=== PATIENT | female | born 1980 | race Two or more races ===

== ENCOUNTER 2017-06-10 11:02 | Outpatient (CLI) | payer MEDICAID ==
[2017-06-10 11:52] LABS: APPEARANCE,URINE SLIGHTLY-CLOUDY; BILIRUBIN,URINE NEGATIVE (NEGATIVE); COLOR,URINE YELLOW; GLUCOSE, URINE NEGATIVE (NEGATIVE); KETONES,URINE NEGATIVE (NEGATIVE); LEUKOCYTE ESTERASE,URINE SMALL (NEGATIVE); NITRITE,URINE NEGATIVE (NEGATIVE); PROTEIN,URINE NEGATIVE (NEGATIVE); URINE SPECIFIC GRAVITY 1.008; UROBILINOGEN,URINE NEGATIVE mg/dL (<2.0)
[2017-06-10 12:09] LABS: URINE AMPHETAMINES SCREEN NEGATIVE; URINE BARBITURATES SCREEN NEGATIVE; URINE BENZODIAZEPINES SCREEN NEGATIVE; URINE COCAINE SCREEN NEGATIVE; URINE MARIJUANA (THC) SCREEN NEGATIVE; URINE METHADONE SCREEN NEGATIVE; URINE PHENCYCLIDINE SCREEN NEGATIVE
--- NOTE | 2017-06-10 13:37 | Non Stress Test Report ---
Non Stress Test Datetime Report Generated by CPN: 06/10/2017 13:37 DEMOGRAPHIC EGA NST: 39.0 INDICATION Indication for Study: Ordered by Provider VITAL SIGNS Temperature - NST: 98.1 Pulse - NST: 100 RESP - NST: 15 NBPSYS NST: 94 NBPDIA NST: 60 MONITORING Monitor Explained: Monitor Explained; Test Explained; Patient Verbalized Understanding Time on Monitor: 06/10/2017 11:30 Time off Monitor: 06/10/2017 12:03 NST Duration: 33 NST INTERVENTIONS NST Interventions: PO Hydration Physician Notified NST: H Mike CNM BABY A: [id number] BABY A Movement : Present Contraction Frequency : occas FHR Baseline : 135 Accelerations : 15X15 Decelerations : None Variability : Moderate 6-25bpm NST Review: Meets Criteria for Reactive NST NST Review and Verified By : Kade Langley RNC NST Results: Reactive NST REPORT Report Trigger: Send Report
== END 2017-06-10 13:31 | disposition home or self-care (01) ==
LOC: LC 11:02
PROVIDERS: ATTEND Obstetrics & Gynecology
PROC: 4A1HXCZ Monitoring of Products of Conception, Cardiac Rate, External Approach (ICD-10-PCS; principal; 2017-06-10)
DX: O47.1 False labor at or after 37 completed weeks of gestation (principal); O09.523 Supervision of elderly multigravida, third trimester; Z3A.39 39 weeks gestation of pregnancy
CPT/HCPCS: 59025; 80307; 81005

== ENCOUNTER 2017-06-10 18:10 | Inpatient (IN) | payer MEDICAID ==
[2017-06-10] MEDS ORDERED: RINGERS SOLUTION,LACTATED 1,000 ML IV ONE (18:32)
[2017-06-10] MEDS ORDERED: RINGERS SOLUTION,LACTATED 1,000 ML IV PRN (18:32)
[2017-06-10] MEDS ORDERED: MISOPROSTOL 0.2 MG TABLET ONE (18:48)
[2017-06-10] MEDS ORDERED: LIDOCAINE 1% INJ-PF (10 MG/ML) 30 ML SDV ONE (18:49)
[2017-06-10] MEDS ORDERED: OXYTOCIN/NORMAL SALINE 20 UNIT/1,000 ML RTUINJ ONE (18:49)
[2017-06-10 19:21] LABS: ABSOLUTE EOSINOPHILS # (AUTO) 0.1 10^3/uL (0.0-0.6); ABSOLUTE LYMPHOCYTES (AUTO) 1.9 10^3/uL (0.5-4.7); ABSOLUTE MONOCYTES (AUTO) 0.8 10^3/uL (0.1-1.4); ABSOLUTE NEUT (AUTO) 8.2 10^3/uL (1.7-8.2); BASOPHILS % (AUTO) 0.3 % (0-2); EOSINOPHILS % (AUTO) 0.7 % (0-6); HEMATOCRIT 36.8 % (36.0-47.0); HEMOGLOBIN 12.9 g/dL (12.0-15.5); LYMPHOCYTES % (AUTO) 17.2 % (13-45); MEAN CORPUSCULAR HEMOGLOBIN 33.7 pg (27.0-33.4); MEAN CORPUSCULAR HGB CONC 35.1 g/dL (32.0-36.0); MEAN CORPUSCULAR VOLUME 96 fl (80-97); PLATELET COUNT 181 10^3/uL (150-450); RED BLOOD COUNT 3.83 10^6/uL (3.72-5.28); RED CELL DISTRIBUTION WIDTH 14.6 % (11.5-14.0); SEGMENTED NEUTROPHILS % (AUTO) 74.8 % (42-78); TOTAL CELLS COUNTED % (AUTO) 100 %
[2017-06-10 19:49] LABS: APPEARANCE,URINE TURBID; BILIRUBIN,URINE NEGATIVE (NEGATIVE); COLOR,URINE YELLOW; GLUCOSE, URINE NEGATIVE (NEGATIVE); KETONES,URINE NEGATIVE (NEGATIVE); LEUKOCYTE ESTERASE,URINE NEGATIVE (NEGATIVE); NITRITE,URINE NEGATIVE (NEGATIVE); PROTEIN,URINE NEGATIVE (NEGATIVE); URINE SPECIFIC GRAVITY 1.023; UROBILINOGEN,URINE NEGATIVE mg/dL (<2.0)
[2017-06-10 21:04] LABS: URINE AMPHETAMINES SCREEN NEGATIVE; URINE BARBITURATES SCREEN NEGATIVE; URINE BENZODIAZEPINES SCREEN NEGATIVE; URINE COCAINE SCREEN NEGATIVE; URINE MARIJUANA (THC) SCREEN NEGATIVE; URINE METHADONE SCREEN NEGATIVE; URINE PHENCYCLIDINE SCREEN NEGATIVE
[2017-06-10] MEDS ORDERED: BENZOCAINE/MENTHOL AEROSOL SPRAY 56 ML TOP PRN (21:45)
[2017-06-10] MEDS ORDERED: MAGNESIUM HYDROXIDE SUSP 30 ML UDCUP PO PRN (21:45)
[2017-06-10] MEDS ORDERED: ACETAMINOPHEN 650 MG SUPP.RECT PR PRN (21:45)
[2017-06-10] MEDS ORDERED: ZOLPIDEM TARTRATE 5 MG TABLET PO PRN (21:45)
[2017-06-10] MEDS ORDERED: OXYTOCIN/NORMAL SALINE 20 UNIT/1,000 ML RTUINJ IV PRN (21:45)
[2017-06-10] MEDS ORDERED: PROMETHAZINE HCL 25 MG TABLET PO PRN (21:45)
[2017-06-10] MEDS ORDERED: DIPH/PERTUSS(ACELL)/TETANUS VAC/PF 0.5 ML SYR (>=10YO) IM PRN (21:45)
[2017-06-10] MEDS ORDERED: PROMETHAZINE HCL 25 MG SUPP.RECT PR PRN (21:45)
[2017-06-10] MEDS ORDERED: NA PHOS,M-B/NA PHOS,DI-BA (ADULT) 133 ML ENEMA PR PRN (21:45)
[2017-06-10] MEDS ORDERED: PROMETHAZINE HCL INJ 25 MG/1 ML VIAL IV PRN (21:45)
[2017-06-10] MEDS ORDERED: DIPHENHYDRAMINE HCL 25 MG CAPSULE PO PRN (21:45)
[2017-06-10] MEDS ORDERED: PSEUDOEPHEDRINE HCL 30 MG TABLET PO PRN (21:45)
[2017-06-10] MEDS ORDERED: DIBUCAINE 1% OINTMENT 28 GM TP PRN (21:45)
[2017-06-10] MEDS ORDERED: GLYCERIN/WITCH HAZEL LEAF 1 EACH MED..PAD TP PRN (21:45)
[2017-06-10] MEDS ORDERED: ACETAMINOPHEN WITH CODEINE #3 TABLET PO PRN ×2 (21:45)
[2017-06-10] MEDS ORDERED: MEASLES,MUMPS&RUBELLA VACC/PF 0.5 ML VIAL SUBCUT PRN (21:45)
--- NOTE | 2017-06-10 23:44 | Warning Signs in Babies ---
VOD Warning Signs Datetime Report Generated by [facility]: 06/10/2017 23:44 VOD#608 -Warning Signs in Babies: Needs to be viewed. (06/10/2017 11:29:Sayda Monge RN)
[2017-06-11] MEDS ORDERED: IBUPROFEN 800 MG TABLET ONE
--- NOTE | 2017-06-11 00:48 | Admission Physical ---
Datetime Report Generated by CPN: 06/11/2017 00:48 CURRENT ADMISSION Chief Complaint: Uterine Contractions Indication for Induction: Not Applicable Indication for Induction: Active Labor Admit Plan: Admit to Unit; Initiate Labor Protocol ALLERGIES Medication Allergies: No Medication Allergies: No Known Allergies (12/30/2013) Latex: No Latex Allergies OBSTETRICAL HISTORY EDC: 06/17/2017 00:00 : 3 Para: 1 Term: 1 : 0 SAB: 1 IAB: 0 Livin Gestational Diabetes: No Rh Sensitization: No Incompetent Cervix: No FILEMON: No Infertility: No ART Treatment: No Uterine Anomaly: No IUGR: No Hx Previous C/S: No Macrosomia: No Hx Loss/Stillborn: No PIH: No Hx : No Placenta Previa/Abruption: No Depression/PP Depression: No PTL/PROM: No Post Hemorrhage: No Current Procedures: Ultrasound Obstetrical History Comments: 2013 SAB 6 weeks 2015 baby girl 40 weeks 2017 current pregnacy SEE RECORDS Alcohol: No Marijuana : No Cocaine: No Other Illicit Drugs: No Cigarettes: Former Smoker. [id number] MEDICAL HISTORY Diabetes: No Blood Transfusion: No Pulmonary Disease (Asthma, TB): No Breast Disease: No Hypertension: No Customs Broker Surgery: No Heart Disease: No Hosp/Surgery: Yes Autoimmune Disorder: No Anesthetic Complications: No Kidney Disease: No Abnormal Pap Smear: No Neuro/Epilepsy: No Psychiatric Disorders: No Other Medical Diseases: No Hepatitis/Liver Disease: No Significant Family History: No Varicosities/Phlebitis: No Trauma/Violence : No Thyroid Dysfunction: No Medical History Comments: at 12 y.o cosmetic syrgery for nose 16 y.o tonsils taken out 12 y.o. plastic surgery (nose) INFECTIOUS HISTORY Gonorrhea: No Genital Herpes: No Chlamydia: No Tuberculosis: No Syphilis: No Hepatitis: No HIV/AIDS Exposure: No Rash or Viral Illness: No HPV: No PHYSICAL EXAM General: Normal HEENT: Normal Neurologic: Normal Thyroid: Normal Heart: Normal Lungs: Normal Breast: Deferred Back: Normal Abdomen: Normal Genitourinary Exam: Normal Extremities: Normal DTRs: Normal Pelvic Type: Adequate VAGINAL EXAM Dilatation: 7 Effacement: 75 Station: -2 MEMBRANES Pooling: Negative Membranes: Intact FETUS A EGA: 39.0 Monitoring: External US FHR- Baseline: 140 Variability: Moderate 6-25bpm Decelerations: None FHR Category: Category I PLANS FOR LABOR AND DELIVERY Labor and Delivery: None Pain Management: Natural Feeding Preference: Breast Benefit of Breast Feed Discussed: Yes Circumcision: N/A INFORMED CONSENT Signature: with User ID: [email or web address]
[2017-06-11] MEDS: FAMOTIDINE 20 MG TABLET PO SCH ×3 (03:48→22:01)
[2017-06-11] MEDS: IBUPROFEN 800 MG TABLET PO SCH ×4 (06:21→22:02)
[2017-06-11 07:19] LABS: HEMATOCRIT 38.2 % (36.0-47.0); HEMOGLOBIN 12.9 g/dL (12.0-15.5); MEAN CORPUSCULAR HEMOGLOBIN 32.8 pg (27.0-33.4); MEAN CORPUSCULAR HGB CONC 33.9 g/dL (32.0-36.0); MEAN CORPUSCULAR VOLUME 97 fl (80-97); PLATELET COUNT 188 10^3/uL (150-450); RED BLOOD COUNT 3.94 10^6/uL (3.72-5.28); RED CELL DISTRIBUTION WIDTH 15.4 % (11.5-14.0); WHITE BLOOD COUNT 12.5 10^3/uL (4.0-10.5)
--- NOTE | 2017-06-11 09:12 | PDOC PROGRESS REPORT ---
Subjective-OB Subjective: Post Delivery Day: 1 35 year old. Denies any needs at this time, voiding without difficulty, state lochia is stable, pain well controlled, bonding with baby well. Physical Exam (OB) Vital Signs: Temp Pulse Resp BP Pulse Ox 97.6 F 73 15 111/70 100 06/11/17 07:36 06/11/17 07:36 06/11/17 07:36 06/11/17 07:36 06/11/17 07:36 Intake & Output 06/10/17 06/11/17 06/12/17 06:59 06:59 06:59 Weight 109.6 kg - Lochia Lochia Amount: Small 10-25 ml Lochia Color: Rubra/Red - Abdomen Description: Soft, Round Hernia Present: No Fundal Description: Firm, Midline Fundal Height: u/u - u/2 Objective-Diagnostic Laboratory: 06/11/17 06:52 06/10/17 06/10/17 06/10/17 18:21 18:50 18:50 WBC 11.0 H RBC 3.83 Hgb 12.9 Hct 36.8 MCV 96 MCH 33.7 H MCHC 35.1 RDW 14.6 H Plt Count 181 Seg Neutrophils % 74.8 Lymphocytes % 17.2 Monocytes % 7.0 Eosinophils % 0.7 Basophils % 0.3 Absolute Neutrophils 8.2 Absolute Lymphocytes 1.9 Absolute Monocytes 0.8 Absolute Eosinophils 0.1 Absolute Basophils 0.0 Urine Color YELLOW Urine Appearance TURBID Urine pH 7.0 Ur Specific [place] 1.023 Urine Protein NEGATIVE Urine Glucose (UA) NEGATIVE Urine Ketones NEGATIVE Urine Blood NEGATIVE Urine Nitrite NEGATIVE Ur Leukocyte Esterase NEGATIVE Blood Type A POSITIVE Antibody Screen NEGATIVE 06/11/17 06:52 WBC 12.5 H RBC 3.94 Hgb 12.9 Hct 38.2 MCV 97 MCH 32.8 MCHC 33.9 RDW 15.4 H Plt Count 188 Seg Neutrophils % Lymphocytes % Monocytes % Eosinophils % Basophils % Absolute Neutrophils Absolute Lymphocytes Absolute Monocytes Absolute Eosinophils Absolute Basophils Urine Color Urine Appearance Urine pH Ur Specific [place] Urine Protein Urine Glucose (UA) Urine Ketones Urine Blood Urine Nitrite Ur Leukocyte Esterase Blood Type Antibody Screen Assessment and Plan(PN) - Assessment and Plan (1) Vaginal delivery Is this a current diagnosis for this admission?: Yes Plan: routine pp care - Time Spent with Patient Time with patient: Less than 15 minutes Critical Time spent with patient: Less than 15 minutes Medications reviewed and adjusted accordingly: Yes - Disposition Anticipated Discharge: Home Within: within 24 hours
[2017-06-11] MEDS: SENNOSIDES/DOCUSATE 8.6-50 MG 1 EACH TABLET PO SCH (09:39)
[2017-06-11] MEDS: PRENATAL VITAMIN W DHA CAPSULE PO SCH (09:39)
[2017-06-11] MEDS: FERROUS SULFATE 325 MG TABLET PO SCH ×2 (09:40→17:15)
[2017-06-11] MEDS: DOCUSATE SODIUM 100 MG CAPSULE PO SCH ×2 (09:40→17:15)
[2017-06-12] MEDS: IBUPROFEN 800 MG TABLET PO SCH ×2 (06:10→13:24)
--- NOTE | 2017-06-12 08:41 | PDOC DISCHARGE SUMMARY ---
Final Diagnosis Discharge Date: 06/12/17 - Final Diagnosis (1) Vaginal delivery Is this a current diagnosis for this admission?: Yes Discharge Data - Discharge Medication Prescriptions: Docusate Sodium [Colace 100 mg Capsule] 100 mg PO BID #60 capsule Ibuprofen [Motrin 800 mg Tablet] 800 mg PO Q8 #60 tablet Home Medications: Vits96/Iron Fum/Folic [ Tablet] 1 tab PO DAILY 12/30/13 Docusate Sodium [Colace 100 mg Capsule] 100 mg PO BID #60 capsule 06/12/17 Ibuprofen [Motrin 800 mg Tablet] 800 mg PO Q8 #60 tablet 06/12/17 Gestational Age: 39 Reason(s) for Admission: Onset of Labor Procedures: NST Intrapartum Procedure(s): Spontaneous Vaginal Delivery Complication(s): Laceration-Vaginal Laceration-Degree: 1st - Data Baby 1 Female Home with Mother: Yes Complications: No - Diagnosis Test Laboratory: Temp Pulse Resp BP Pulse Ox 98.2 F 82 18 114/77 99 06/12/17 08:02 06/12/17 08:02 06/12/17 08:02 06/11/17 19:43 06/12/17 08:02 06/10/17 06/10/17 06/11/17 18:21 18:50 06:52 RBC 3.83 3.94 Hgb 12.9 12.9 Hct 36.8 38.2 Urine Opiates Screen NEGATIVE - Discharge information/Instructions Discharge Activity: Activity As Tolerated, Pelvic Rest, No tub bath Discharge Diet: Regular Disposition: HOME, SELF-CARE Follow up with: [facility] in: 4, Weeks
[2017-06-12] MEDS: FAMOTIDINE 20 MG TABLET PO SCH (10:57)
[2017-06-12] MEDS: DOCUSATE SODIUM 100 MG CAPSULE PO SCH (10:57)
[2017-06-12] MEDS: FERROUS SULFATE 325 MG TABLET PO SCH (10:57)
[2017-06-12] MEDS: SENNOSIDES/DOCUSATE 8.6-50 MG 1 EACH TABLET PO SCH (10:57)
[2017-06-12] MEDS: PRENATAL VITAMIN W DHA CAPSULE PO SCH (10:57)
[2017-06-12 12:14] VITALS: BP 100/70
--- NOTE | 2017-06-14 14:39 | Delivery Summary ---
Del Sum A-C Datetime Report Generated by CPN: 06/14/2017 14:39 DELIVERY PERSONNEL DELIVERY PERSONNEL: [id number] Delivery Doctor:: Clary Hardwick MD Labor and Delivery Nurse:: Sayda Monge RNfiscal officer Nurse:: Anel Barker RN Box Office Manager/MATERIALS INSPECTOR: Isela Dinh, ST MATERNAL INFORMATION Delivery Anesthesia: None Medications After Delivery: Pitocin Drip 20 Units/1000ml NSS Estimated Blood Loss (ml): 250 Maternal Complications: None LABOR SUMMARY EDC: 06/17/2017 00:00 No. Babies in Womb: 1 Attempted: No Labor Anesthesia: None LABOR INFORMATION Reason for Induction: Not Applicable Onset of Labor: 06/10/2017 20:13 Complete Dilatation: 06/10/2017 21:34 Oxytocin: N/A Group B Beta Strep: negative Antibiotics # of Doses: N/A Antibiotics Time of Last Dose: N/A Name of Antibiotic Given: N/A Steroids Given: None Reason Steroids Not Administered: Not Applicable MEMBRANES Membranes Rupture Method: Artificial Rupture of Membranes: 06/10/2017 21:14 Length of Rupture (hr): 1.40 Amniotic Fluid Color: Clear Amniotic Fluid Amount: Moderate Amniotic Fluid Odor: Normal STAGES OF LABOR Stage 1 hr: 1 Stage 1 min: 21 Stage 2 hr: 1 Stage 2 min: 4 Stage 3 hr: 0 Stage 3 min: 5 Total Time in Labor hr: 2 Total Time in Labor min: 30 VAGINAL DELIVERY Episiotomy: None Laceration #1: Vaginal Laceration Extension #1: First Degree Laceration Repair: Yes Laceration Repair Note: repaired with one 3-0 chromic suture Sponge Count Correct: Vaginal Sweep Performed Sharps Count Correct: Yes CSECTION DELIVERY Primary Indication: N/A Secondary Indication: N/A CSection Incidence: N/A Labor: N/A Elective: N/A BABY A INFORMATION Delivery Date/Time: 06/10/2017 22:38 Method of Delivery: Vaginal Method of Delivery: Vaginal Born in Route : No : N/A Forceps: N/A Vacuum Extraction: N/A Shoulder Dystocia : No PRESENTATION/POSITION BABY A Presentation: Cephalic Presentation: Cephalic Cephalic Presentation: Vertex Cephalic Presentation: Vertex Vertex Position: Left Occipital Anterior Breech Presentation: N/A PLACENTA INFORMATION BABY A Placenta Delivery Time : 06/10/2017 22:43 Placenta Method of Delivery: Spontaneous Placenta Method of Delivery: Spontaneous Placenta Status: Delivered Placenta Status: Delivered SCORES BABY A Heart Rate 1 min: >100 bpm Resp Effort 1 min: Good Cry Reflex Irritability 1 min: Cough or Sneeze or Pulls Away Muscle Tone 1 min: Active Motion Color 1 min: Body [place], Extremities Blue Resuscitation Effort 1 min: Tactile Stimulation SCORE 1 MIN: 9 Heart Rate 5 min: >100 bpm Resp Effort 5 min: Good Cry Reflex Irritability 5 min: Cough or Sneeze or Pulls Away Muscle Tone 5 min: Active Motion Color 5 min: Body [place], Extremities Blue Resuscitation Effort 5 min: Tactile Stimulation SCORE 5 MIN: 9 INFORMATION BABY A Gestational Age at Delivery: 39.0 Gestational Status: Full Term- 39- 40.6 Weeks Outcome : Liveborn Infant Condition : Stable Sex: Female Infant Sex: Female IDENTIFICATION BABY A Verification Date/Time: 06/10/2017 22:52 ID Band Number: [id number] Mother's Name Verified: Yes Infant RN Verifying : CFelicitas Ruiz, RN Additional Verifying Personnel: D Sproues MATERIALS INSPECTOR WEIGHT/LENGTH BABY A Birthweight (gm): 3940 Infant Weight (lb): 8 Weight (oz): 11 Length (in): 20.50 Length (cm): 52.07 CORD INFORMATION BABY A No. Cord Vessels: 3 Nuchal Cord : N/A Cord Blood Taken: Yes-For Storage (Mom's Blood type +) Infant Suction: Mouth; Nose ASSESSMENT BABY A Infant Complications: None Physical Findings at Delivery: Within Normal Limits Infant Respirations: Appears Normal Skin to Skin: Yes Skin to Skin: Yes Skin to Skin: Yes Skin to Skin: Yes Skin to Skin: Yes Skin to Skin: Yes Skin to Skin: Yes Skin to Skin Time (min): 60 Skin to Skin Time (min): 60 Parimutuel Ticket Checker/ALS Called : No Infant Care By: Corinne Farrell RN Transferred To: Remains with Mother SIGNATURES Signature: with User ID: [email or web address]
== END 2017-06-12 15:06 | disposition home or self-care (01) | DRG 775 ==
LOC: LC 18:10 → LR 18:35 → 2S 06-11 00:36
PROVIDERS: ADMIT Obstetrics & Gynecology; ATTEND Obstetrics & Gynecology
PROC: 10E0XZZ Delivery of Products of Conception, External Approach (ICD-10-PCS; principal; 2017-06-10)
PROC: 0HQ9XZZ Repair Perineum Skin, External Approach (ICD-10-PCS; 2017-06-10)
DX: O99.214 Obesity complicating childbirth (principal); O70.0 First degree perineal laceration during delivery; E66.9 Obesity, unspecified; Z68.33 Body mass index [BMI] 33.0-33.9, adult; Z3A.39 39 weeks gestation of pregnancy; Z37.0 Single live birth
CPT/HCPCS: 36415; 59025; 80307; 81005; 85025; 85027; 86592; 86850; 86900; 86901; J2590; J3490

== ENCOUNTER 2019-04-28 13:56 | Inpatient (IN) | payer MEDICAID ==
[2019-04-28 14:36] LABS: EPITHELIALS (WET MOUNT) 3+ EPITHELIALS SEEN; T.VAGINALIS (WET MOUNT) NO TRICHOMONAS SEEN; WBCS (WET MOUNT) FEW WBCS SEEN; YEAST (WET MOUNT) NO YEAST SEEN
[2019-04-28 14:41] LABS: AMORPHOUS SEDIMENT,URINE TRACE /HPF; APPEARANCE,URINE CLOUDY; BILIRUBIN,URINE NEGATIVE (NEGATIVE); COLOR,URINE YELLOW; GLUCOSE, URINE NEGATIVE (NEGATIVE); KETONES,URINE NEGATIVE (NEGATIVE); LEUKOCYTE ESTERASE,URINE NEGATIVE (NEGATIVE); NITRITE,URINE NEGATIVE (NEGATIVE); PROTEIN,URINE 30 mg/dL (NEGATIVE); URINE SPECIFIC GRAVITY 1.026; UROBILINOGEN,URINE NEGATIVE mg/dL (<2.0)
[2019-04-28 14:59] LABS: URINE AMPHETAMINES SCREEN NEGATIVE; URINE BARBITURATES SCREEN NEGATIVE; URINE BENZODIAZEPINES SCREEN NEGATIVE; URINE COCAINE SCREEN NEGATIVE; URINE MARIJUANA (THC) SCREEN NEGATIVE; URINE METHADONE SCREEN NEGATIVE; URINE PHENCYCLIDINE SCREEN NEGATIVE
--- NOTE | 2019-04-28 15:23 | Non Stress Test Report ---
Non Stress Test Datetime Report Generated by CPN: 04/28/2019 15:22 DEMOGRAPHIC EGA NST: 35.1 VITAL SIGNS Temperature - NST: 98.0 RESP - NST: 16 MONITORING Monitor Explained: Monitor Explained; Test Explained; Patient Verbalized Understanding Time on Monitor: 04/28/2019 14:25 Time off Monitor: 04/28/2019 15:04 NST Duration: 39 NST INTERVENTIONS NST Interventions: PO Hydration; Reposition Patient Physician Notified NST: Dr. Corral BABY A: [id number] BABY A Movement : Present Contraction Frequency : irregular FHR Baseline : 135 Accelerations : 15X15 Decelerations : Variable Variability : Moderate 6-25bpm NST Review: Does Not Meet Criteria for Reactive NST (Annotations: Data stored by N on behalf of user) NST Review and Verified By : Rocco Nevarez RN NST Results: Reactive NST REPORT Report Trigger: Send Report (Annotations: Data stored by TACO on behalf of user)
[2019-04-28 16:01] LABS: CHLAM PCR NOT DETECTED (NOT DETECT)
[2019-04-28] MEDS ORDERED: BETAMET ACET/BETAMET NA INJ 6 MG/1 ML ONE (16:24)
[2019-04-28] MEDS ORDERED: PENICILLIN G-K 5 MILLION UNIT VIAL ONE ×2 (16:25→21:41)
[2019-04-28 16:51] LABS: ABSOLUTE BASOPHILS # (AUTO) 0.1 10^3/uL (0.0-0.2); ABSOLUTE EOSINOPHILS # (AUTO) 0.1 10^3/uL (0.0-0.6); ABSOLUTE MONOCYTES (AUTO) 0.6 10^3/uL (0.1-1.4); ABSOLUTE NEUT (AUTO) 4.7 10^3/uL (1.7-8.2); BASOPHILS % (AUTO) 0.7 % (0-2); EOSINOPHILS % (AUTO) 1.5 % (0-6); HEMATOCRIT 36.2 % (36.0-47.0); HEMOGLOBIN 12.3 g/dL (12.0-15.5); LYMPHOCYTES % (AUTO) 27.2 % (13-45); MEAN CORPUSCULAR HEMOGLOBIN 31.1 pg (27.0-33.4); MEAN CORPUSCULAR VOLUME 91 fl (80-97); PLATELET COUNT 192 10^3/uL (150-450); RED BLOOD COUNT 3.96 10^6/uL (3.72-5.28); RED CELL DISTRIBUTION WIDTH 15.1 % (11.5-14.0); SEGMENTED NEUTROPHILS % (AUTO) 62.6 % (42-78); TOTAL CELLS COUNTED % (AUTO) 100 %; WHITE BLOOD COUNT 7.5 10^3/uL (4.0-10.5)
[2019-04-28] MEDS ORDERED: PENICILLIN G POTASSIUM 5,000,000 UNIT in DEXTROSE 5%-WATER 100 ML IV ONE (16:52)
--- NOTE | 2019-04-28 16:52 | RADIOLOGY REPORT (SQ) ---
EXAM DESCRIPTION: U/S PROFILE W/O STRESS COMPLETED DATE/TIME: 04/28/2019 4:14 pm REASON FOR STUDY: BPP, JUSTIN COMPARISON: None. TECHNIQUE: Limited davis-scale realtime and static images of the fetus to measure specified parameter s. LIMITATIONS: None. FINDINGS: HEART RATE: 135 beats per minute. JUSTIN: Largest measured pocket is 2.1 x 5.3 cm. PRESENTATION: Cephalic. BREATHING MOVEMENT: 2 points. MOVEMENT: 2 points. POSTURE AND TONE: 2 points. QUALITATIVE JUSTIN: 2 points. OTHER: No other significant finding. IMPRESSION: BIOPHYSICAL PROFILE: 01/04. Trimester of : Third - 28 weeks to delivery COMMENT: BREATHING MOVEMENTS: 2 POINTS: PRESENT 0 POINTS: ABSENT MOTION: 2 POINTS: PRESENT 0 POINTS: ABSENT TONE: 2 POINTS: PRESENT 0 POINTS: ABSENT AMNIOTIC FLUID VOLUME: 2 POINTS: LARGEST POCKET GREATER THAN 2 CM DEPTH. 0 POINTS: NO POCKET OF 2 CM. TECHNICAL DOCUMENTATION: JOB ID: [id number] [employer]- All Rights Reserved Reading location - IP/workstation name: [email or web address]
[2019-04-28] MEDS ORDERED: OXYTOCIN/NORMAL SALINE 20 UNIT/1,000 ML RTUINJ IV PRN (16:56)
[2019-04-28] MEDS ORDERED: BETAMET ACET/BETAMET NA INJ 6 MG/1 ML IM ONE (17:00)
[2019-04-28] MEDS: RINGERS SOLUTION,LACTATED 1,000 ML IV PRN ×2 (17:52→19:28)
[2019-04-28] MEDS ORDERED: OXYTOCIN/NORMAL SALINE 20 UNIT/1,000 ML RTUINJ ONE (17:58)
[2019-04-28] MEDS ORDERED: MISOPROSTOL 0.2 MG TABLET ONE (17:58)
[2019-04-28] MEDS ORDERED: LIDOCAINE 1% INJ-PF (10 MG/ML) 30 ML SDV ONE (17:58)
[2019-04-28] MEDS ORDERED: OXYTOCIN 10 UNIT/ML VIAL ONE (17:58)
[2019-04-28] MEDS: PENICILLIN G POTASSIUM 2,500,000 UNIT in DEXTROSE 5%-WATER 50 ML IV SCH (21:47)
--- NOTE | 2019-04-28 22:45 | Admission Physical ---
Datetime Report Generated by CPN: 04/28/2019 22:45 CURRENT ADMISSION Chief Complaint: Uterine Contractions; Suspected Ruptured Membranes Admit Impression : Term, Intrauterine ; Active Labor; Ruptured Membranes Admit Plan: Admit to Unit; Initiate Labor Protocol ALLERGIES Medication Allergies: No Medication Allergies: No Known Allergies (12/30/2013) Latex: Unknown OBSTETRICAL HISTORY EDC: 06/01/2019 00:00 : 3 Para: 2 Term: 2 : 0 SAB: 0 IAB: 0 Ectopic: 0 Livin Cesareans: 0 VBACs: 0 Multiple Births: 0 Gestational Diabetes: No Rh Sensitization: No Incompetent Cervix: No FILEMON: No Infertility: No ART Treatment: No Uterine Anomaly: No IUGR: No Hx Previous C/S: No Macrosomia: No Hx Loss/Stillborn: No PIH: No Hx : No Placenta Previa/Abruption: No Depression/PP Depression: No PTL/PROM: No Post Hemorrhage: No Current Procedures: Ultrasound Obstetrical History Comments: G1: 2013, 6.5, SAB G2: 2015, 40.4, 8lbs 10 oz vaginal, female G3: 2017, 39 wks, 8lbs 11 oz,vaginal, female SEE RECORDS Alcohol: No Marijuana : No Cocaine: No Other Illicit Drugs: No Cigarettes: Never Smoker. [id number] MEDICAL HISTORY Diabetes: No Blood Transfusion: No Pulmonary Disease (Asthma, TB): No Breast Disease: No Hypertension: No Documentation Analyst Surgery: No Heart Disease: No Hosp/Surgery: Yes Autoimmune Disorder: No Anesthetic Complications: No Kidney Disease: No Abnormal Pap Smear: No Neuro/Epilepsy: No Psychiatric Disorders: No Other Medical Diseases: No Hepatitis/Liver Disease: No Significant Family History: No Varicosities/Phlebitis: No Trauma/Violence : No Thyroid Dysfunction: No Medical History Comments: rhinoplasty, tonsillectomy, wisdom teeth removal INFECTIOUS HISTORY Gonorrhea: No Genital Herpes: No Chlamydia: No Tuberculosis: No Syphilis: No Hepatitis: No HIV/AIDS Exposure: No Rash or Viral Illness: No HPV: No PHYSICAL EXAM General: Normal HEENT: Normal Neurologic: Normal Thyroid: Normal Heart: Normal Lungs: Normal Breast: Normal Back: Normal Abdomen: Normal Genitourinary Exam: Normal Extremities: Normal DTRs: Normal Pelvic Type: Adequate Vital Signs: Reviewed; Within Normal Limits VAGINAL EXAM Dilatation: 1 Effacement: 40 Station: -2 Contraction Comments: Every 5-6 minutes MEMBRANES Pooling: Positive Membranes: Ruptured Amniotic Fluid Color: Clear FETUS A EGA: 35.1 Monitoring: External US FHR- Baseline: 120 Variability: Moderate 6-25bpm Accelerations: 15X15 Decelerations: None FHR Category: Category I Presentation: Vertex Admit Comment: at 35.1 wks EGA with SROM at 0900-clear and now contractions: active labor -Admit to LDR -NPO and IVFs -GBS not yet tested: Begin PCN 5 million units IV now and repeat Q 4 hour dosing with 2.5 million units -Bethamethasone 12 mg IM now -Patient reports big gush of clear fluid this am and then continued leaking small amount with cough of twisting movements. Amnisure positive. Pooling positive. Cervix very soft, anterior and dilated 1cm. Anticipate -Discussed risks with PPROM. DIscussed signs of infection, abruption. DIscussed that at EGA greather than 34 wks EGA that delivery is indicated but will give first dose BMZ and antibiotics now. She is understands. Discussed with her that nursery is aware and will be available to help with baby. Consents signed PLANS FOR LABOR AND DELIVERY Labor and Delivery: None Pain Management: Natural Feeding Preference: Breast Benefit of Breast Feed Discussed: Yes Circumcision: No INFORMED CONSENT Informed Consent Obtained: Vaginal Delivery; Section Delivery; Induction of Labor; Risks, Benefits and Alternatives Discussed Signature: with User ID: [email or web address] : with User ID: [email or web address]
[2019-04-29] MEDS ORDERED: MEASLES,MUMPS&RUBELLA VACC/PF 0.5 ML VIAL SUBCUT PRN (00:43)
[2019-04-29] MEDS ORDERED: BENZOCAINE/MENTHOL AEROSOL SPRAY 56 ML TOP PRN (00:43)
[2019-04-29] MEDS ORDERED: ZOLPIDEM TARTRATE 5 MG TABLET PO PRN (00:43)
[2019-04-29] MEDS ORDERED: OXYTOCIN/NORMAL SALINE 20 UNIT/1,000 ML RTUINJ IV PRN (00:43)
[2019-04-29] MEDS ORDERED: DIBUCAINE 1% OINTMENT 56 GM TP PRN (00:43)
[2019-04-29] MEDS ORDERED: ACETAMINOPHEN WITH CODEINE #3 TABLET PO PRN ×2 (00:43)
[2019-04-29] MEDS ORDERED: DIPH/PERTUSS(ACELL)/TETANUS VAC/PF 0.5 ML SYR (>=10YO) IM PRN (00:43)
[2019-04-29] MEDS ORDERED: IBUPROFEN 800 MG TABLET ONE (01:10)
[2019-04-29] MEDS: IBUPROFEN 800 MG TABLET PO SCH ×4 (01:12→22:25)
--- NOTE | 2019-04-29 01:34 | Delivery Summary ---
Del Sum A-C Datetime Report Generated by CPN: 04/29/2019 01:33 DELIVERY PERSONNEL DELIVERY PERSONNEL: [id number] Delivery Doctor:: Albina Corral MD Labor and Delivery Nurse:: Maria Elena Nicholas RNdairy hand Nurse:: Apple Lancaster RN Nursery Nurse:: Tiara Matthew RN Nursery Nurse:: Gwen Banuelos RN Phlebotomist Medical Lab Assistant/LITIGATION SPECIALIST: Koki Ross, ST MATERNAL INFORMATION Delivery Anesthesia: None Medications After Delivery: Pitocin Bolus-Please Comment Meds After Delivery Comment: Pitocin 20 units/1000 mL NS bolus Delivery QBL: 150 Maternal Complications: Premature Rupture of Membranes Provider Comments: Called to patient's room as she was feeling pressure to push. Only a thin anterior lip could be felt. Contractions regular every 2 minutes without pitocin. Patient had no epidural or other anesthesia. She pushed past cervix easily and delivered over an intact perineum after approximately 5-6 contractions. After delivery of the head, the shoulders and rest of the body followed easily. A small amount of clear amniotic fluid was noted. The infant was vigorously crying. Cord clamped after 20-30 second delay and placed on Mothers abdomen/chest. Placenta spontaneously delivered. Mother stable. Infant in care of Nursery team and stable. LABOR SUMMARY EDC: 06/01/2019 00:00 No. Babies in Womb: 1 Attempted: No Labor Anesthesia: None LABOR INFORMATION Reason for Induction: Premature Rupture of Membranes Onset of Labor: 04/28/2019 23:17 Complete Dilatation: 04/29/2019 00:07 Oxytocin: Augmentation Group B Beta Strep: unknown Antibiotics # of Doses: 2 Antibiotics Time of Last Dose: 2146 Name of Antibiotic Given: penicillin Steroids Given: Partial Course; < 24 Hours before Delivery Reason Steroids Not Administered: Not Applicable MEMBRANES Membranes Rupture Method: Spontaneous Rupture of Membranes: 04/28/2019 09:30 Length of Rupture (hr): 14.82 Amniotic Fluid Color: Clear Amniotic Fluid Amount: Small Amniotic Fluid Odor: None STAGES OF LABOR Stage 1 hr: 0 Stage 1 min: 50 Stage 2 hr: 0 Stage 2 min: 12 Stage 3 hr: 0 Stage 3 min: 5 Total Time in Labor hr: 1 Total Time in Labor min: 7 VAGINAL DELIVERY Episiotomy: None Laceration #1: None Laceration Repair: Not Applicable Sponge Count Correct: Yes Sharps Count Correct: Yes CSECTION DELIVERY Primary Indication: N/A Secondary Indication: N/A CSection Incidence: N/A Labor: N/A Elective: N/A Uterine Closure: Double-layer closure BABY A INFORMATION Infant Delivery Date/Time: 04/29/2019 00:19 Method of Delivery: Vaginal Born in Route : No : N/A Forceps: N/A Vacuum Extraction: N/A Shoulder Dystocia : No PRESENTATION/POSITION BABY A Presentation: Cephalic Cephalic Presentation: Vertex Vertex Position: Right Occipital Anterior Breech Presentation: N/A PLACENTA INFORMATION BABY A Placenta Delivery Time : 04/29/2019 00:24 Placenta Method of Delivery: Spontaneous Placenta Status: Delivered SCORES BABY A Heart Rate 1 min: >100 bpm Resp Effort 1 min: Good Cry Reflex Irritability 1 min: Cough or Sneeze or Pulls Away Muscle Tone 1 min: Active Motion Color 1 min: Blue/Pale Resuscitation Effort 1 min: Tactile Stimulation SCORE 1 MIN: 8 Heart Rate 5 min: >100 bpm Resp Effort 5 min: Good Cry Reflex Irritability 5 min: Cough or Sneeze or Pulls Away Muscle Tone 5 min: Active Motion Color 5 min: Body [place] Gu[place], Extremities Blue Resuscitation Effort 5 min: Tactile Stimulation; Oxygen SCORE 5 MIN: 9 INFANT INFORMATION BABY A Gestational Age at Delivery: 35.2 Gestational Status: Late - 34- 36.6 Weeks Infant Outcome : Liveborn Infant Condition : Stable Sex: Male IDENTIFICATION BABY A Infant Verification Date/Time: 04/29/2019 00:37 ID Band Number: [id number] Mother's Name Verified: Yes Infant RN Verifying : KFelicitas Nurco, RN Additional Verifying Personnel: Lawson Barker RN WEIGHT/LENGTH BABY A Birthweight (gm): 3100 Infant Weight (lb): 6 Infant Weight (oz): 13 Length (in): 20.00 Length (cm): 50.80 CORD INFORMATION BABY A No. Cord Vessels: 3 Nuchal Cord : N/A Cord Blood Taken: Yes-For Storage (Mom's Blood type +) Infant Suction: Mouth ASSESSMENT BABY A Skin to Skin: Yes Skin to Skin Time (min): 5 BABY B INFORMATION : N/A SIGNATURES Signature: with User ID: [email or web address] : with User ID: [email or web address]
--- NOTE | 2019-04-29 01:56 | Warning Signs in Babies ---
VOD Warning Signs Datetime Report Generated by [facility]: 04/29/2019 01:56 VOD#608 -Warning Signs in Babies: Viewed with Parent(s)/Family (04/28/2019 13:59:Maria Elena Nicholas RN)
[2019-04-29] MEDS: PENICILLIN G POTASSIUM 2,500,000 UNIT in DEXTROSE 5%-WATER 50 ML IV SCH (02:35)
[2019-04-29] MEDS: SENNOSIDES/DOCUSATE 8.6-50 MG 1 EACH TABLET PO SCH (09:38)
[2019-04-29] MEDS: PRENATAL VITAMIN W DHA CAPSULE PO SCH (09:38)
[2019-04-29] MEDS: FERROUS SULFATE 325 MG TABLET PO SCH ×2 (09:38→18:13)
[2019-04-29] MEDS: DOCUSATE SODIUM 100 MG CAPSULE PO SCH ×2 (09:38→18:13)
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
[2019-04-29] MEDS ORDERED: BETAMET ACET/BETAMET NA INJ 6 MG/1 ML IM SCH (10:00)
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
[2019-04-30] MEDS: IBUPROFEN 800 MG TABLET PO SCH ×3 (09:19→22:56)
[2019-04-30] MEDS: PRENATAL VITAMIN W DHA CAPSULE PO SCH (09:47)
[2019-04-30] MEDS: FERROUS SULFATE 325 MG TABLET PO SCH ×2 (09:47→17:28)
[2019-04-30] MEDS: DOCUSATE SODIUM 100 MG CAPSULE PO SCH ×2 (09:47→17:28)
[2019-04-30] MEDS: SENNOSIDES/DOCUSATE 8.6-50 MG 1 EACH TABLET PO SCH (09:47)
[2019-05-01] MEDS: IBUPROFEN 800 MG TABLET PO SCH (05:39)
[2019-05-01 08:06] VITALS: BP 124/82
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
[2019-05-01 12:29] LABS: ABSOLUTE BASOPHILS # (AUTO) 0.1 10^3/uL (0.0-0.2); ABSOLUTE EOSINOPHILS # (AUTO) 0.2 10^3/uL (0.0-0.6); ABSOLUTE LYMPHOCYTES (AUTO) 2.1 10^3/uL (0.5-4.7); ABSOLUTE MONOCYTES (AUTO) 0.6 10^3/uL (0.1-1.4); ABSOLUTE NEUT (AUTO) 5.5 10^3/uL (1.7-8.2); EOSINOPHILS % (AUTO) 2.2 % (0-6); HEMATOCRIT 37.3 % (36.0-47.0); HEMOGLOBIN 12.7 g/dL (12.0-15.5); LYMPHOCYTES % (AUTO) 24.9 % (13-45); MEAN CORPUSCULAR HEMOGLOBIN 31.5 pg (27.0-33.4); MEAN CORPUSCULAR HGB CONC 34.1 g/dL (32.0-36.0); MEAN CORPUSCULAR VOLUME 92 fl (80-97); MONOCYTES % (AUTO) 7.4 % (3-13); PLATELET COUNT 203 10^3/uL (150-450); RED BLOOD COUNT 4.04 10^6/uL (3.72-5.28); RED CELL DISTRIBUTION WIDTH 15.4 % (11.5-14.0); SEGMENTED NEUTROPHILS % (AUTO) 64.5 % (42-78); TOTAL CELLS COUNTED % (AUTO) 100 %; WHITE BLOOD COUNT 8.6 10^3/uL (4.0-10.5)
[2019-05-01] MEDS: FERROUS SULFATE 325 MG TABLET PO SCH (12:30)
[2019-05-01] MEDS: PRENATAL VITAMIN W DHA CAPSULE PO SCH (12:30)
[2019-05-01] MEDS: SENNOSIDES/DOCUSATE 8.6-50 MG 1 EACH TABLET PO SCH (12:30)
[2019-05-01] MEDS: DOCUSATE SODIUM 100 MG CAPSULE PO SCH (12:30)
== END 2019-05-01 12:32 | disposition home or self-care (01) | DRG 807 ==
LOC: LC 13:56 → LR 17:09 → 2S 04-29 02:34
PROVIDERS: ADMIT Obstetrics & Gynecology; ATTEND Obstetrics & Gynecology
PROC: 10E0XZZ Delivery of Products of Conception, External Approach (ICD-10-PCS; principal; 2019-04-29)
DX: O60.14X0 Preterm labor third trimester with preterm delivery third trimester, not applicable or unspecified (principal); O42.913 Preterm premature rupture of membranes, unspecified as to length of time between rupture and onset of labor, third trimester; Z3A.35 35 weeks gestation of pregnancy; Z37.0 Single live birth
CPT/HCPCS: 36415; 76819; 80307; 81001; 84112; 85025; 86592; 86850; 86900; 86901; 87210; 87491; 87591; 94760; 96372; J0702; J2540; J2590; J3490; J7060; Q0114

== ENCOUNTER 2020-04-05 23:23 | Inpatient (IN) | payer MEDICAID ==
[2020-04-05] MEDS ORDERED: OXYTOCIN/0.9 % SODIUM CHLORIDE 30 UNIT/500 ML RTUINJ ONE (23:32)
[2020-04-05] MEDS ORDERED: LIDOCAINE 1% INJ-PF (10 MG/ML) 30 ML SDV ONE (23:32)
[2020-04-05] MEDS ORDERED: MISOPROSTOL 0.2 MG TABLET ONE ×2 (23:32→23:33)
[2020-04-05] MEDS ORDERED: OXYTOCIN 10 UNIT/ML VIAL ONE (23:32)
[2020-04-05] MEDS ORDERED: RINGERS SOLUTION,LACTATED 1,000 ML IV PRN (23:33)
--- NOTE | 2020-04-06 00:02 | Admission Physical ---
Datetime Report Generated by CPN: 04/06/2020 00:02 CURRENT ADMISSION Chief Complaint: Uterine Contractions Indication for Induction: Not Applicable Admit Impression : Term, Intrauterine Admit Plan: Admit to Unit; Initiate Labor Protocol ALLERGIES Medication Allergies: No Medication Allergies: No Known Allergies (12/30/2013) Latex: No Latex Allergies OBSTETRICAL HISTORY EDC: 04/18/2020 00:00 : 5 Para: 3 Term: 2 : 1 Livin Gestational Diabetes: No Rh Sensitization: No Incompetent Cervix: No FILEMON: No Infertility: No ART Treatment: No Uterine Anomaly: No IUGR: No Hx Previous C/S: No Macrosomia: No Hx Loss/Stillborn: No PIH: No Hx : No Placenta Previa/Abruption: No Depression/PP Depression: No PTL/PROM: No Post Hemorrhage: No Current Procedures: Ultrasound; NST Obstetrical History Comments: g1-2013, sab, 6weeks 5 days g2-2015, , 40+4 weeks, female, 8lb 10 oz, no complications g3-2017, , 39 weeks, female, 8lb 11oz, no complications g4-2019, , 35+1 weeks, male, 6lb 13oz, delivery, close spaced g5-current , close spaced delivery, AMA hx of precipitous labor and delivery SEE RECORDS Alcohol: No Marijuana : No Cocaine: No Other Illicit Drugs: No Cigarettes: Former Smoker. [id number] MEDICAL HISTORY Diabetes: No Blood Transfusion: No Pulmonary Disease (Asthma, TB): Yes Breast Disease: No Hypertension: No Dispatch Lead Surgery: No Heart Disease: No Hosp/Surgery: No Autoimmune Disorder: No Anesthetic Complications: No Kidney Disease: No Abnormal Pap Smear: No Neuro/Epilepsy: No Psychiatric Disorders: No Other Medical Diseases: No Hepatitis/Liver Disease: No Significant Family History: No Varicosities/Phlebitis: No Trauma/Violence : No Thyroid Dysfunction: No Medical History Comments: former smoker, obesity, childbirth x 3, rhinoplasty, tonsilectomy, wisdom teeth removal, asthma INFECTIOUS HISTORY Gonorrhea: No Genital Herpes: No Chlamydia: No Tuberculosis: No Syphilis: No Hepatitis: No HIV/AIDS Exposure: No Rash or Viral Illness: No HPV: No PHYSICAL EXAM General: Normal HEENT: Normal Neurologic: Normal Thyroid: Normal Heart: Normal Lungs: Normal Breast: Deferred Back: Normal Abdomen: Normal Genitourinary Exam: Normal Extremities: Normal DTRs: Normal Pelvic Type: Adequate FETUS A EGA: 38.2 PLANS FOR LABOR AND DELIVERY Labor and Delivery: None Pain Management: None Feeding Preference: Breast Circumcision: N/A INFORMED CONSENT Signature: with User ID: [email or web address]
[2020-04-06] MEDS ORDERED: OXYTOCIN/0.9 % SODIUM CHLORIDE 30 UNIT/500 ML RTUINJ IV PRN (00:05)
[2020-04-06] MEDS ORDERED: PROMETHAZINE HCL 25 MG TABLET PO PRN (00:05)
[2020-04-06] MEDS ORDERED: MEASLES,MUMPS&RUBELLA VACC/PF 0.5 ML VIAL SUBCUT PRN (00:05)
[2020-04-06] MEDS ORDERED: PROMETHAZINE HCL INJ 25 MG/1 ML VIAL IV PRN (00:05)
[2020-04-06] MEDS ORDERED: ACETAMINOPHEN 650 MG SUPP.RECT PR PRN (00:05)
[2020-04-06] MEDS ORDERED: PSEUDOEPHEDRINE HCL 30 MG TABLET PO PRN (00:05)
[2020-04-06] MEDS ORDERED: DIBUCAINE 1% OINTMENT 28 GM TP PRN (00:05)
[2020-04-06] MEDS ORDERED: PROMETHAZINE HCL 25 MG SUPP.RECT PR PRN (00:05)
[2020-04-06] MEDS ORDERED: MAGNESIUM HYDROXIDE SUSP 30 ML UDCUP PO PRN (00:05)
[2020-04-06] MEDS ORDERED: NA PHOS,M-B/NA PHOS,DI-BA (ADULT) 133 ML ENEMA PR PRN (00:05)
[2020-04-06] MEDS ORDERED: ZOLPIDEM TARTRATE 5 MG TABLET PO PRN (00:05)
[2020-04-06] MEDS ORDERED: DIPHENHYDRAMINE HCL 25 MG CAPSULE PO PRN (00:05)
[2020-04-06] MEDS ORDERED: DIPH/PERTUSS(ACELL)/TETANUS VAC/PF 0.5 ML SYR (>=10YO) IM PRN (00:05)
[2020-04-06] MEDS ORDERED: GLYCERIN/WITCH HAZEL LEAF 1 EACH MED..WIPE TP PRN (00:05)
[2020-04-06] MEDS ORDERED: BENZOCAINE/MENTHOL AEROSOL SPRAY 56 ML TOP PRN (00:05)
[2020-04-06] MEDS ORDERED: ACETAMINOPHEN WITH CODEINE #3 TABLET PO PRN (00:05)
[2020-04-06 00:22] LABS: ABSOLUTE EOSINOPHILS # (AUTO) 0.1 10^3/uL (0.0-0.6); ABSOLUTE LYMPHOCYTES (AUTO) 2.2 10^3/uL (0.5-4.7); ABSOLUTE MONOCYTES (AUTO) 0.6 10^3/uL (0.1-1.4); ABSOLUTE NEUT (AUTO) 7.2 10^3/uL (1.7-8.2); BASOPHILS % (AUTO) 0.5 % (0-2); EOSINOPHILS % (AUTO) 0.7 % (0-6); HEMATOCRIT 35.9 % (36.0-47.0); HEMOGLOBIN 12.5 g/dL (12.0-15.5); LYMPHOCYTES % (AUTO) 21.4 % (13-45); MEAN CORPUSCULAR HEMOGLOBIN 32.7 pg (27.0-33.4); MEAN CORPUSCULAR HGB CONC 34.7 g/dL (32.0-36.0); MEAN CORPUSCULAR VOLUME 94 fl (80-97); MONOCYTES % (AUTO) 6.3 % (3-13); PLATELET COUNT 189 10^3/uL (150-450); RED BLOOD COUNT 3.81 10^6/uL (3.72-5.28); RED CELL DISTRIBUTION WIDTH 14.7 % (11.5-14.0); SEGMENTED NEUTROPHILS % (AUTO) 71.1 % (42-78); TOTAL CELLS COUNTED % (AUTO) 100 %; WHITE BLOOD COUNT 10.2 10^3/uL (4.0-10.5)
[2020-04-06] MEDS ORDERED: IBUPROFEN 800 MG TABLET ONE (00:31)
--- NOTE | 2020-04-06 01:17 | Delivery Summary ---
Del Sum A-C Datetime Report Generated by CPN: 04/06/2020 01:17 DELIVERY PERSONNEL DELIVERY PERSONNEL: [id number] Delivery Doctor:: Matt Banuelos MD Labor and Delivery Nurse:: Apple Lancaster RNsupervisor telephone information Nurse:: Anel Barker RN Financial Services Specialist:: Ofelia Morgan, RN Tubing Assembler/SATELLITE COMMUNICATIONS OPERATOR: Zita Paul, ST MATERNAL INFORMATION Delivery Anesthesia: None Medications After Delivery: Pitocin 30 Units in 500ml NS/D5W Maternal Complications: None LABOR SUMMARY EDC: 04/18/2020 00:00 No. Babies in Womb: 1 Attempted: No Labor Anesthesia: None LABOR INFORMATION Reason for Induction: Not Applicable Onset of Labor: 04/05/2020 20:30 Complete Dilatation: 04/05/2020 23:53 Oxytocin: N/A Group B Beta Strep: negative Steroids Given: None Reason Steroids Not Administered: Not Applicable MEMBRANES Membranes Rupture Method: Artificial Rupture of Membranes: 04/05/2020 23:57 Length of Rupture (hr): 0.00 Amniotic Fluid Color: Clear Amniotic Fluid Amount: Moderate Amniotic Fluid Odor: None STAGES OF LABOR Stage 1 hr: 3 Stage 1 min: 23 Stage 2 hr: 0 Stage 2 min: 4 Stage 3 hr: 0 Stage 3 min: 3 Total Time in Labor hr: 3 Total Time in Labor min: 30 VAGINAL DELIVERY Episiotomy: None Sponge Count Correct: N/A Sharps Count Correct: N/A CSECTION DELIVERY Primary Indication: N/A Secondary Indication: N/A CSection Incidence: N/A Labor: N/A Elective: N/A CSection Incision: N/A BABY A INFORMATION Delivery Date/Time: 04/05/2020 23:57 Method of Delivery: Vaginal Nurse Controlled Delivery: No Born in Route : No : N/A Forceps: N/A Vacuum Extraction: N/A Shoulder Dystocia : No PRESENTATION/POSITION BABY A Presentation: Cephalic Cephalic Presentation: Vertex Vertex Position: Left Occipital Anterior (Annotations: Data stored by [facility] on behalf of user) Breech Presentation: N/A PLACENTA INFORMATION BABY A Placenta Delivery Time : 04/06/2020 00:00 Placenta Method of Delivery: Spontaneous Placenta Status: Delivered SCORES BABY A Heart Rate 1 min: >100 bpm Resp Effort 1 min: Good Cry Reflex Irritability 1 min: Cough or Sneeze or Pulls Away Muscle Tone 1 min: Active Motion Color 1 min: Blue/Pale SCORE 1 MIN: 8 Heart Rate 5 min: >100 bpm Resp Effort 5 min: Good Cry Reflex Irritability 5 min: Cough or Sneeze or Pulls Away Muscle Tone 5 min: Active Motion Color 5 min: Body [place], Extremities Blue SCORE 5 MIN: 9 INFORMATION BABY A Gestational Age at Delivery: 38.1 Gestational Status: Early Term- 37- 38.6 Weeks Outcome : Liveborn Infant Condition : Stable Infant Sex: Female IDENTIFICATION BABY A Infant Verification Date/Time: 04/06/2020 00:44 ID Band Number: [id number] Mother's Name Verified: Yes Infant RN Verifying Infant: KFelicitas Nurco, RN Additional Verifying Personnel: B. Ring, RN WEIGHT/LENGTH BABY A Birthweight (gm): 3290 Weight (lb): 7 Weight (oz): 4 Length (in): 19.50 Infant Length (cm): 49.53 CORD INFORMATION BABY A No. Cord Vessels: 3 Nuchal Cord : N/A Cord Blood Taken: Yes-For Storage (Mom's Blood type +) Suction: Mouth ASSESSMENT BABY A Infant Complications: None Physical Findings at Delivery: Within Normal Limits Physical Findings- Other: See full nursery assessment Respirations: Appears Normal Skin to Skin: Yes Geography Department Chair/ALS Called : No Care By: Lawson Barker RN Transferred To: Remains with Mother BABY B INFORMATION : N/A SIGNATURES Signature: with User ID: [email or web address]
--- NOTE | 2020-04-06 01:17 | Birth Certificate Data ---
Cert Data Datetime Report Generated by CPN: 04/06/2020 01:17 CERTIFICATE DATA Delivery Provider: Matt Banuelos MD (04/05/2020 23:34:Joanie Bourgeois RN) 47a. Care: Yes (04/05/2020 23:34:Joanie Bourgeois RN) 47b. Date of First Visit: 08/28/2019 00:00 (04/05/2020 23:34:Joanie Bourgeois RN) 48a. Number of Prev Live Births: 3 (04/05/2020 23:34:Joanie Bourgeois RN) 48b. Now Livin (04/05/2020 23:34:Joanie Bourgeois RN) 48c. Live Births Now : 0 (04/05/2020 23:34:QS system process) 48d. Date of Last Live : 04/28/2019 00:00 (04/05/2020 23:34:Joanie Bourgeois RN) 48e. Losses: 1 (04/05/2020 23:34:Joanie Bourgeois RN) RISK FACTORS IN THIS 49a. Diabetes: No (04/05/2020 23:34:Anel Barker RN) 49b. Hypertension: No (04/05/2020 23:34:Anel Barker RN) 49c. Previous Births: 1 (04/05/2020 23:34:Anel Barker RN) 49d. Stillborns: No (04/05/2020 23:34:Anel Barker RN) 49d. IUGR: No (04/05/2020 23:34:Anel Barker RN) 49e. Infertility Treatment: No (04/05/2020 23:34:Anel Barker RN) Infections Present/Treated 53a. Gonorrhea: No (04/05/2020 23:34:Anel Barker RN) Results this Hospital Visit : Negative (04/05/2020 23:34:Joanie Bourgeois RN) 53b. Syphilis: No (04/05/2020 23:34:Anel Barker RN) 53c. Chlamydia: No (04/05/2020 23:34:Anel Barekr RN) Results this Hospital Visit: Negative (04/05/2020 23:34:Joanie Bourgeois RN) 53d. Hepatitis B: No (04/05/2020 23:34:Anel Barker RN) Results this Hospital Visit: Negative (04/05/2020 23:34:Anel Barker RN) 53e. Hepatitis C: Negative (04/05/2020 23:34:Joanie Bourgeois RN) 53h. Mother Tested for HBsAG: Yes (04/05/2020 23:34:Anel Barker RN) 53j. Test Result: Negative (04/05/2020 23:34:Anel Barker RN) Obstetric Procedures 54a, b, c. Obstetric Procedures: Ultrasound; NST (04/05/2020 23:34:Joanie Bourgeois RN) Cigarette Smoking Cigarette Smoking: Former Smoker. [id number] (04/05/2020 23:34:Joanie Bourgeosi RN) 55a. 3 Months Before Preg - Ci (04/05/2020 23:34:Apple Lancaster RN) 55b. 1st Trimester of Preg- Ci (04/05/2020 23:34:Apple Lancaster RN) 55c. 2nd Trimester of Preg- Ci (04/05/2020 23:34:Apple Lancaster RN) 55d. 3rd Trimester of Preg- Ci (04/05/2020 23:34:Apple Lancaster RN) Onset of Labor 56a. PROM >12 Hrs: 0.00 (04/05/2020 23:34:QS system process) 56b. Precipitous Labor <3 Hrs: 3 (04/05/2020 23:34:QS system process) 56c. Prolonged Labor > 20 Hrs: 3 (04/05/2020 23:34:QS system process) 57a. Induction of Labor: N/A (04/05/2020 23:34:Ofelia Morgan RN) 57c. Non-Vertex Presentation A: Vertex (04/05/2020 23:34:Joanie Bourgeois RN) 57d. Steroids - Lung Mat: None (04/05/2020 23:34:Joanie Bourgeois RN) 57d. Steroids - Lung Mat: Not Applicable (04/05/2020 23:34:Joanie Bourgeois RN) 57g. Moderate/Heavy Meconium: Clear (04/05/2020 23:57:Ofelia Morgan RN) 57h. Intolerance of Labor: N/A (04/05/2020 23:34:Joanie Bourgeois RN) : N/A (04/05/2020 23:34:Joanie Bourgeois RN) 57i. Epidural/Spinal Anesthesia: None (04/05/2020 23:34:Joanie Bourgeois RN) Method of Delivery 58a. Forceps - Unsuccessful A: N/A (04/05/2020 23:34:Ofelia Morgan RN) 58b. Vacuum - Unsuccessful A: N/A (04/05/2020 23:34:Joanie Bourgeois RN) 58c. Presentation at 58c. Presentation at - A : Vertex (04/05/2020 23:34:Joanie Bourgeois RN) 58c. Presentation at - A : N/A (04/05/2020 23:34:Joanie Bourgeois RN) 58c. Presentation at - A : Cephalic (04/05/2020 23:34:Joanie Bourgeois RN) Final Route and Method of Del 58d. Baby A Route/Delivery: Vaginal (04/05/2020 23:57:Ofelia Morgan RN) 58e. Trial of Labor Attempted: No (04/05/2020 23:34:Joanie Bourgeois RN) 58e. Trial of Labor Attempted A: N/A (04/05/2020 23:34:Joanie Bourgeois RN) 58e. Trial of Labor Attempted B: N/A (04/05/2020 23:34:Joanie Bourgeois RN) Birthweight Baby A: 3290 (04/05/2020 23:34:Anel Barker RN) 60a. Pounds : 7 (04/05/2020 23:34:QS system process) 60b. Ounces: 4 (04/05/2020 23:34:QS system process) 61. GA at Delivery Baby A: 38.1 (04/05/2020 23:34:Joanie Bourgeois RN) : Early Term- 37- 38.6 Weeks (04/05/2020 23:34:QS system process) 62a. 5 Minute Baby A: 9 (04/05/2020 23:34:QS system process)
[2020-04-06] MEDS: IBUPROFEN 800 MG TABLET PO SCH ×3 (06:14→22:06)
[2020-04-06 07:15] LABS: URINE AMPHETAMINES SCREEN NEGATIVE; URINE BARBITURATES SCREEN NEGATIVE; URINE BENZODIAZEPINES SCREEN NEGATIVE; URINE COCAINE SCREEN NEGATIVE; URINE MARIJUANA (THC) SCREEN NEGATIVE; URINE METHADONE SCREEN NEGATIVE; URINE PHENCYCLIDINE SCREEN NEGATIVE
[2020-04-06] MEDS: PRENATAL VITAMIN W DHA CAPSULE PO SCH (10:34)
[2020-04-06] MEDS: SENNOSIDES/DOCUSATE 8.6-50 MG 1 EACH TABLET PO SCH (10:34)
[2020-04-06] MEDS: FAMOTIDINE 20 MG TABLET PO SCH ×2 (10:34→22:06)
[2020-04-06] MEDS: DOCUSATE SODIUM 100 MG CAPSULE PO SCH ×2 (10:34→17:44)
[2020-04-06] MEDS: FERROUS SULFATE 325 MG TABLET PO SCH ×2 (10:34→17:44)
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
[2020-04-07] MEDS: IBUPROFEN 800 MG TABLET PO SCH (06:04)
[2020-04-07 07:57] LABS: HEMATOCRIT 34.3 % (36.0-47.0); HEMOGLOBIN 12.1 g/dL (12.0-15.5); MEAN CORPUSCULAR HEMOGLOBIN 33.2 pg (27.0-33.4); MEAN CORPUSCULAR HGB CONC 35.2 g/dL (32.0-36.0); MEAN CORPUSCULAR VOLUME 94 fl (80-97); PLATELET COUNT 157 10^3/uL (150-450); RED BLOOD COUNT 3.64 10^6/uL (3.72-5.28); WHITE BLOOD COUNT 6.9 10^3/uL (4.0-10.5)
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
[2020-04-07] MEDS: PRENATAL VITAMIN W DHA CAPSULE PO SCH (09:39)
[2020-04-07] MEDS: FERROUS SULFATE 325 MG TABLET PO SCH (09:39)
[2020-04-07] MEDS: DOCUSATE SODIUM 100 MG CAPSULE PO SCH (09:39)
[2020-04-07] MEDS: FAMOTIDINE 20 MG TABLET PO SCH (09:39)
[2020-04-07] MEDS: SENNOSIDES/DOCUSATE 8.6-50 MG 1 EACH TABLET PO SCH (09:39)
[2020-04-07 10:00] VITALS: BP 111/69
== END 2020-04-07 12:24 | disposition home or self-care (01) | DRG 807 ==
LOC: LC 23:23 → LR 23:36 → 2S 04-06 02:13
PROVIDERS: ADMIT Obstetrics & Gynecology Gynecology; ATTEND Obstetrics & Gynecology Gynecology
PROC: 10E0XZZ Delivery of Products of Conception, External Approach (ICD-10-PCS; principal; 2020-04-05)
PROC: 10907ZC Drainage of Amniotic Fluid, Therapeutic from Products of Conception, Via Natural or Artificial Opening (ICD-10-PCS; 2020-04-05)
DX: O80 Encounter for full-term uncomplicated delivery (principal); Z37.0 Single live birth; Z3A.38 38 weeks gestation of pregnancy
CPT/HCPCS: 36415; 80307; 85025; 85027; 86592; 86850; 86900; 86901; J2590; J3490